=== PATIENT | female | born 1995 | race Caucasian/White ===

== ENCOUNTER 2017-02-11 00:35 | Emergency (ER) | payer BC ==
[~2017-02-11] VITALS: Ht 167.6 cm; Wt 101.6 kg
[2017-02-11 00:41] VITALS: Ht 167.6 cm; Wt 101.6 kg
[2017-02-11] MEDS ORDERED: AMOX500C2 PO (01:14)
[2017-02-11] MEDS ORDERED: IBUP-1542 PO (01:14)
--- NOTE | 2017-02-11 01:23 | ERD ---
ER Documentation Chief Complaint Chief Complaint sore throat x 3 days HPI 1-year-old female presents here to emergency department for complaints of sore throat for 3 days. Patient's complaint of sore throat, burning pain, 6/10 scale , not better or worse with anything. Patient did not take any medications to help with symptoms. Patient denies any stridor or shortness of breath. Patient did not take any medications to help with symptoms. ROS All systems reviewed and are negative except as per history of present illness. Medications Home Meds Active Scripts Ibuprofen* (Motrin*) 600 Mg Tab, 600 MG PO Q6H Y for PAIN AND OR ELEVATED TEMP, #30 TAB Prov:BASIL HERRERA NP 02/11/17 Amoxicillin* (Amoxicillin*) 500 Mg Cap, 500 MG PO TID for 10 Days, CAP Prov:BASIL HERRERA NP 02/11/17 Allergies Allergies: Coded Allergies: No Known Allergy (Unverified , 02/11/17) PMhx/Soc Hx Respiratory Disorders: Yes (bronchitis) Hx Alcohol Use: No Hx Substance Use: No Hx Tobacco Use: No FmHx Family History: No coronary disease, No diabetes, No other Physical Exam Vitals Vital Signs Date Time Temp Pulse Resp B/P Pulse Ox O2 Delivery O2 Flow Rate FiO2 02/11/17 00:41 97.8 80 20 121/73 100 Physical Exam GENERAL: The patient is well developed and appropriate for usual state of health, in no apparent distress. HEENT: Atraumatic. Ears: Normal tympanic membrane, no erythema or bulging. No ear canal swelling. No ear discharge. Nose: normal nasal turbinates, no erythema or swelling. Normal nasal discharge. Throat: oropharynx erythematous with tonsillar swelling and tonsillar exudates noted. No lymphadenopathy. CHEST: Clear to auscultation bilaterally. There are no rales, wheezes or rhonchi. HEART: Regular rate and rhythm. No murmurs, clicks, rubs or gallops. No S3 or S4. ABDOMEN: Soft, nontender and nondistended. Good bowel sounds. No rebound or guarding. No gross peritonitis. No gross organomegaly or masses. No Green sign or McBurney point tenderness. BACK: No midline or flank tenderness. EXTREMITIES: Equal pulses bilaterally. There is no peripheral clubbing, cyanosis or edema. No focal swelling or erythema. Full range of motion. Grossly neurovascularly intact. NEURO: Alert and oriented. Cranial nerves 2-12 intact. Motor strength in all 4 extremities with 5/5 strength. Sensation grossly intact. Normal speech and gait. SKIN: There is no apparent rash or petechia. The skin is warm and dry. HEMATOLOGIC AND LYMPHATIC: There is no evidence of excessive bruising or lymphedema. No gross cervical, axillary, or inguinal lymphadenopathy. Procedures/MDM Medical decision making: Patient symptoms is likely consistent with acute bacterial pharyngitis, most likely strep throat. Low suspicion for peritonsillar abscess, mononucleosis, no symptoms of epiglottitis, laryngitis. No oral airway obstruction noted. No symptoms of sepsis at this time. Patient appears well and is hemodynamically stable. Patient was given for amoxicillin, ibuprofen, is advised to follow-up with primary care doctor in 2-3 days for reevaluation of symptoms. Patient is advised to do salt water gargles. Patient is advised to return to emergency department for worsening symptoms. Disposition: Home. Stable. Disclaimer: Inadvertent spelling and grammatical errors are likely due to EHR/ dictation software use and do not reflect on the overall quality of patient care. Also, please note that the electronic time recorded on this note does not necessarily reflect the actual time of the patient encounter. Departure Diagnosis: Primary Impression: Acute bacterial pharyngitis Condition: Stable Patient Instructions: Pharyngitis, Strep (Presumed) BASIL HERRERA NP Feb 11, 2017 01:23
[2017-02-11 01:46] VITALS: BP 132/78; PULSE 76; RESP 18; TEMP 98.1
== END 2017-02-11 01:48 | disposition home or self-care (01) ==
LOC: FTE 00:35
DX: J02.9 Acute pharyngitis, unspecified (principal)
CPT/HCPCS: 99283